=== PATIENT | female | born 1980 | race Caucasian/White ===

== ENCOUNTER 2017-01-31 10:56 | Emergency (ER) | payer SELFPAY ==
[~2017-01-31] VITALS: Ht 165.1 cm; Wt 114.0 kg
[~2017-01-31 10:56] MED LIST: BACTRIM DS1 TAB OR; CIPRO500 MG OR; CIPROFLOXACN500 MG PO; IBUPROFEN600 MG OR; K-DUR/KLOR-CON10 MEQ OR; LORTAB 5 OR; LORTAB 7.5 OR; LORTAB5 OR; MEDDOSEPAK PO; NAPROSYN500 MG OR; NO HOME MEDS; PROMETHAZINE25 MG OR; TORADOL PO; ULTRAM50 M1 PO; ULTRAM50 MG OR; VICODIN1 TA1 PO; ZOFRAN ODT4 MG OR
[2017-01-31] MEDS ORDERED: PERIDEX0.12 % MT (11:15)
[2017-01-31] MEDS ORDERED: PENICILLN VK500 MG PO (11:15)
[2017-01-31] MEDS ORDERED: TRAMADOL HYDROC50 MG PO (11:15)
[2017-01-31 11:20] VITALS: BP 133/74
== END 2017-01-31 11:20 | disposition home or self-care (01) | DRG 159 ==
LOC: ED 10:56
DX: K08.89 Other specified disorders of teeth and supporting structures (principal); F17.210 Nicotine dependence, cigarettes, uncomplicated; R68.84 Jaw pain

== ENCOUNTER 2017-12-10 09:46 | Emergency (ER) | payer SELFPAY ==
[~2017-12-10] VITALS: Ht 165.1 cm; Wt 100.0 kg
[~2017-12-10 09:46] MED LIST changes: +PENICILLN VK500 MG PO; +PERIDEX0.12 % MT; +TRAMADOL HYDROC50 MG PO
[2017-12-10 09:55] VITALS: BP 152/102
[2017-12-10] MEDS ORDERED: CYCLOBENZAPRINE5 MG PO (10:02)
[2017-12-10] MEDS ORDERED: MOTRIN400 MG PO (10:02)
== END 2017-12-10 10:22 | disposition home or self-care (01) | DRG 552 ==
LOC: ED 09:46
DX: M54.5 Low back pain (principal); S39.012A Strain of muscle, fascia and tendon of lower back, initial encounter; X50.1XXA Overexertion from prolonged static or awkward postures, initial encounter; Y93.9 Activity, unspecified; Y92.9 Unspecified place or not applicable

== ENCOUNTER 2017-12-20 21:14 | Emergency (ER) | payer SELFPAY ==
[~2017-12-20] VITALS: Ht 165.1 cm; Wt 113.6 kg
[~2017-12-20 21:14] MED LIST changes: +CYCLOBENZAPRINE5 MG PO; +MOTRIN400 MG PO
[2017-12-20] MEDS ORDERED: MOTRIN800 MG PO (21:32)
[2017-12-20] MEDS ORDERED: TRAMADOL HCL50 MG PO (21:32)
[2017-12-20] MEDS ORDERED: AMOXICILLIN500 MG PO (21:32)
[2017-12-20 21:46] VITALS: BP 153/80
[2017-12-21] MEDS ORDERED: PERCOCET 5/325M1 TAB PO ×2 (09:14→09:22)
== END 2017-12-20 21:46 | disposition home or self-care (01) | DRG 159 ==
LOC: ED 21:14
DX: K02.9 Dental caries, unspecified (principal); K04.7 Periapical abscess without sinus; F17.210 Nicotine dependence, cigarettes, uncomplicated

== ENCOUNTER 2017-12-21 08:51 | Emergency (ER) | payer SELFPAY ==
[~2017-12-21] VITALS: Ht 165.1 cm; Wt 113.0 kg
[~2017-12-21 08:51] MED LIST changes: +AMOXICILLIN500 MG PO; +MOTRIN800 MG PO; +TRAMADOL HCL50 MG PO
[2017-12-21] MEDS ORDERED: PERCOCET 5/325M1 TAB PO ×2 (09:14→09:22)
[2017-12-21 09:20] VITALS: BP 135/76
== END 2017-12-21 09:24 | disposition home or self-care (01) | DRG 159 ==
LOC: ED 08:51
DX: K03.81 Cracked tooth (principal); K02.9 Dental caries, unspecified; F17.210 Nicotine dependence, cigarettes, uncomplicated

== ENCOUNTER 2017-12-27 14:11 | Emergency (ER) | payer SELFPAY ==
[~2017-12-27] VITALS: Ht 165.1 cm; Wt 110.0 kg
[~2017-12-27 14:11] MED LIST changes: +PERCOCET 5/325M1 TAB PO
[2017-12-27] MEDS ORDERED: ULTRAM50 MG PO (14:35)
[2017-12-27] MEDS ORDERED: TORADOL PO (14:35)
[2017-12-27 14:45] VITALS: BP 158/81
== END 2017-12-27 14:45 | disposition home or self-care (01) | DRG 159 ==
LOC: ED 14:11
DX: K08.89 Other specified disorders of teeth and supporting structures (principal); K04.7 Periapical abscess without sinus; F17.200 Nicotine dependence, unspecified, uncomplicated